=== PATIENT | male | born 1960 | race African-American/Black ===

== ENCOUNTER 2020-08-08 18:26 | Inpatient (IN) | payer OTHER ==
[2020-08-08] MEDS ORDERED: RAPID SEQUENCE INTUBATION KIT NR ONE (18:37)
[2020-08-08] MEDS ORDERED: ETOMIDATE 40 MG/20 ML VIAL IVPUSH ONE (18:48)
[2020-08-08] MEDS ORDERED: ROCURONIUM BROMIDE 50 MG/5 ML VIAL IV ONE ×2 (18:48)
[2020-08-08] MEDS ORDERED: ETOMIDATE 20 MG/10 ML AMPUL IVPUSH ONE (18:49)
[2020-08-08] MEDS ORDERED: SODIUM CHLORIDE 0.9% 1000 ML INFUS.BAG IV ONE (19:13)
[2020-08-08] MEDS ORDERED: VANCOMYCIN 1 GM in D5W (PRE-DOCKED) 1,000 MG/250 ML IVPB ONE (19:34)
[2020-08-08] MEDS ORDERED: PIPERACILLIN/TAZOB 4.5 GM 4.5 GM in DEXTROSE 5%-WATER 100 ML IVPB ONE (19:34)
[2020-08-08 19:40] LABS: BASO % 0.2 % (0-2.0); EOS % 0.3 % (0-4.5); HEMATOCRIT 45.6 % (35.4-49); HEMOGLOBIN 14.6 GM/dL (11.7-16.9); LYMPH % 61.3 % (8-40); MCH 29.2 pg (25.7-33.7); MCHC 32.1 g/dl (32.0-35.9); MEAN CELL VOLUME 91.1 fl (80-96); MEAN PLT VOLUME 9.6 fl (7.5-11.1); MONO % 6.3 % (3.8-10.2); NEUT % 31.9 % (42.8-82.8); PLATELET COUNT 316 K/MM3 (134-434); RDW 14.2 % (11.9-15.9)
[2020-08-08] MEDS ORDERED: PIPERACILLIN/TAZOB 4.5 GM 4.5 GM/100 ML BAG IVPB ONE (19:45)
[2020-08-08] MEDS ORDERED: VANCOMYCIN 1 GRAM (PRE-DOCKED) 1,000 MG/250 ML BAG IVPB ONE (19:45)
[2020-08-08 19:46] LABS: INR 1.03 (0.83-1.09); PROTHROMBIN TIME (PATIENT) 12.6 SEC (9.7-13.0)
[2020-08-08 19:49] LABS: ACTIVATED PTT 35.6 SECONDS (25.2-36.5)
[2020-08-08 19:55] LABS: VENOUS O2 SATURATION 76.5 % (70-80)
[2020-08-08 19:58] LABS: CALCIUM 8.9 mg/dL (8.5-10.1)
[2020-08-08 19:59] LABS: ALBUMIN 3.5 g/dl (3.4-5.0); BLOOD UREA NITROGEN 26.1 mg/dL (7-18); MAGNESIUM 2.4 mg/dL (1.8-2.4)
[2020-08-08 20:00] LABS: VENOUS PH 6.818 (7.310-7.410)
[2020-08-08 20:01] LABS: VENOUS PCO2 145.9 mmHg (38-52)
[2020-08-08 20:02] LABS: CREATININE 1.8 mg/dL (0.55-1.3)
[2020-08-08 20:04] LABS: BILIRUBIN,TOTAL 0.4 mg/dL (0.2-1); TOT PROT 7.9 g/dl (6.4-8.2)
[2020-08-08 20:07] LABS: N-TERMINAL BNP 611.6 pg/ml (5-125)
[2020-08-08] MEDS ORDERED: ONDANSETRON 4 MG/2 ML VIAL IVPUSH ONE (20:22)
[2020-08-08] MEDS ORDERED: FAMOTIDINE 20 MG/50 ML IVPB 20 MG/50 ML MG IVPB ONE ×2 (20:22→20:42)
[2020-08-08] MEDS ORDERED: ONDANSETRON 4 MG/2 ML VIAL ONE (20:25)
[2020-08-08 20:30] LABS: ARTERIAL BLD GAS O2 SATURATION 94.4 mmHg (95-98); ARTERIAL BLOOD GAS BASE EXCESS -8.6 mmol/L (-2-2); ARTERIAL BLOOD GAS PO2 97.6 mmHg (80-100)
[2020-08-08 20:36] LABS: ARTERIAL BLOOD GAS pH 7.095 (7.350-7.450)
[2020-08-08] MEDS ORDERED: PROPOFOL 1,000,000 MCG/100 ML VIAL ONE (20:42)
[2020-08-08] MEDS: PROPOFOL 1,000,000 MCG/100 ML VIAL IVPB SCH (20:52)
[2020-08-08 20:55] LABS: ANISOCYTOSIS 0; MACROCYTOSIS 0; PLATELET ESTIMATE NORMAL
[2020-08-08] MEDS ORDERED: MIDAZOLAM HCL 2 MG/2 ML SINGLE DOSE VIAL ONE (23:20)
[2020-08-08] MEDS ORDERED: MIDAZOLAM HCL 2 MG/2 ML SINGLE DOSE VIAL IVPUSH ONE (23:25)
[2020-08-09] MEDS ORDERED: morphine CARPU-JECT 2 MG/1 ML DISP.SYRIN IVPUSH ONE (00:38)
[2020-08-09] MEDS: CHLORHEXIDINE GLUCONATE 4% CLEANSER FOR DECOLONIZATION TP SCH ×2 (00:42→21:07)
[2020-08-09] MEDS: APIXABAN 5 MG TABLET PEG SCH ×3 (01:34→21:07)
[2020-08-09] MEDS: levETIRAcetam 500 MG/5 ML INJECTION VIAL IVPB SCH ×3 (01:34→21:07)
[2020-08-09 08:47] LABS: BASO % 0.1 % (0-2.0); EOS % 0.1 % (0-4.5); HEMATOCRIT 37.1 % (35.4-49); HEMOGLOBIN 12.4 GM/dL (11.7-16.9); LYMPH % 16.3 % (8-40); MCH 29.3 pg (25.7-33.7); MCHC 33.3 g/dl (32.0-35.9); MEAN CELL VOLUME 88.1 fl (80-96); MEAN PLT VOLUME 8.8 fl (7.5-11.1); MONO % 10.8 % (3.8-10.2); NEUT % 72.7 % (42.8-82.8); PLATELET COUNT 193 K/MM3 (134-434); RBC 4.21 M/mm3 (4.00-5.60); RDW 14.3 % (11.9-15.9); WHITE BLOOD COUNT 7.9 K/mm3 (4.0-10.0)
[2020-08-09 08:59] LABS: ALBUMIN 2.7 g/dl (3.4-5.0); CALCIUM 7.7 mg/dL (8.5-10.1)
[2020-08-09 09:00] LABS: BLOOD UREA NITROGEN 22.7 mg/dL (7-18); MAGNESIUM 1.8 mg/dL (1.8-2.4)
[2020-08-09 09:02] LABS: PHOSPHOROUS 3.3 mg/dL (2.5-4.9)
[2020-08-09 09:03] LABS: CREATININE 1.3 mg/dL (0.55-1.3)
[2020-08-09 09:04] LABS: BILIRUBIN,TOTAL 0.7 mg/dL (0.2-1)
[2020-08-09] MEDS: MUPIROCIN 2% TOPICAL OINTMENT FOR DECOLONIZATION NS SCH ×2 (11:28→21:06)
[2020-08-09] MEDS ORDERED: DEXTROSE 50%-WATER 25 GM/50 ML DISP.SYRIN ONE (18:02)
[2020-08-09] MEDS: PROPOFOL 1,000,000 MCG/100 ML VIAL IVPB SCH (21:06)
[2020-08-09] MEDS: INSULIN (LEVEMIR) 100 UNITS/ML UNITS SQ SCH (21:07)
[2020-08-10 06:06] LABS: ARTERIAL BLD GAS O2 SATURATION 99.8 mmHg (95-98); ARTERIAL BLOOD GAS BASE EXCESS -1.7 mmol/L (-2-2); ARTERIAL BLOOD GAS PO2 392.7 mmHg (80-100); ARTERIAL BLOOD GAS pH 7.445 (7.350-7.450)
[2020-08-10 06:07] LABS: ALLENS TEST POSITIVE; VENT MODE A/C; VENT RATE 20
[2020-08-10] MEDS ORDERED: DEXTROSE 50%-WATER 25 GM/50 ML DISP.SYRIN ONE ×2 (06:26→19:31)
[2020-08-10] MEDS ORDERED: DEXTROSE 50%-WATER - 25 GM/50 ML VIAL IVPUSH ONE (06:44)
[2020-08-10] MEDS: APIXABAN 5 MG TABLET PEG SCH (09:56)
[2020-08-10] MEDS: MUPIROCIN 2% TOPICAL OINTMENT FOR DECOLONIZATION NS SCH ×2 (09:56→21:00)
[2020-08-10] MEDS: levETIRAcetam 500 MG/5 ML INJECTION VIAL IVPB SCH ×2 (09:56→21:00)
[2020-08-10] MEDS: PROPOFOL 1,000,000 MCG/100 ML VIAL IVPB SCH ×2 (14:43→20:56)
[2020-08-10] MEDS ORDERED: LABETALOL HCL 5 MG/1 ML (100MG/20 ML VIAL) IVPUSH ONE (20:47)
[2020-08-10] MEDS: CHLORHEXIDINE GLUCONATE 4% CLEANSER FOR DECOLONIZATION TP SCH (21:00)
[2020-08-10] MEDS: INSULIN (LEVEMIR) 100 UNITS/ML UNITS SQ SCH (21:00)
[2020-08-10] MEDS ORDERED: HYDROmorphone HCl 2 MG/ML VIAL IVPUSH PRN (21:58)
[2020-08-10] MEDS ORDERED: HYDROmorphone HCl 2 MG/ML VIAL ONE (22:02)
[2020-08-11] MEDS ORDERED: DEXTROSE 5%-NORMAL SALINE 1,000 ML IV SCH ×2 (06:30→17:05)
[2020-08-11] MEDS: MUPIROCIN 2% TOPICAL OINTMENT FOR DECOLONIZATION NS SCH ×2 (10:45→22:06)
[2020-08-11] MEDS: levETIRAcetam 500 MG/5 ML INJECTION VIAL IVPB SCH ×2 (10:45→22:05)
[2020-08-11] MEDS ORDERED: ROCURONIUM BROMIDE 50 MG/5 ML VIAL IVPUSH ONE (11:19)
[2020-08-11] MEDS ORDERED: ACETAMINOPHEN 1000 MG/100 ML BAG IVPB ONE (12:09)
[2020-08-11] MEDS: PROPOFOL 1,000,000 MCG/100 ML VIAL IVPB SCH ×3 (12:44→21:41)
[2020-08-11] MEDS ORDERED: ACETAMINOPHEN INJECTION 100 ML IVPB ONE (13:12)
[2020-08-11 15:28] LABS: BASO % 0.2 % (0-2.0); HEMATOCRIT 40.6 % (35.4-49); HEMOGLOBIN 13.4 GM/dL (11.7-16.9); LYMPH % 8.3 % (8-40); MCHC 33.1 g/dl (32.0-35.9); MEAN CELL VOLUME 87.7 fl (80-96); MEAN PLT VOLUME 9.5 fl (7.5-11.1); MONO % 7.5 % (3.8-10.2); PLATELET COUNT 193 K/MM3 (134-434); RBC 4.63 M/mm3 (4.00-5.60); RDW 14.2 % (11.9-15.9); WHITE BLOOD COUNT 8.3 K/mm3 (4.0-10.0)
[2020-08-11 15:49] LABS: CALCIUM 8.2 mg/dL (8.5-10.1)
[2020-08-11 15:50] LABS: ALBUMIN 2.7 g/dl (3.4-5.0); BLOOD UREA NITROGEN 14.5 mg/dL (7-18); MAGNESIUM 1.9 mg/dL (1.8-2.4)
[2020-08-11 15:53] LABS: CREATININE 1.3 mg/dL (0.55-1.3)
[2020-08-11 15:54] LABS: BILIRUBIN,TOTAL 1.1 mg/dL (0.2-1)
[2020-08-11 15:55] LABS: TOT PROT 6.4 g/dl (6.4-8.2)
[2020-08-11 16:50] LABS: EPI CELLS >36 /uL (0-25.1); HYALINE CASTS 50 /uL (0-3.1); URINE APPEARANCE Error; URINE BACTERIA 329 /uL (0-1359); URINE BILIRUBIN NEGATIVE (NEGATIVE); URINE COLOR DK YELLOW; URINE GLUCOSE (UA) NEGATIVE (NEGATIVE); URINE KETONE TRACE (NEGATIVE); URINE LEUK ESTERASE 1+ (NEGATIVE); URINE NITRITE NEGATIVE (NEGATIVE); URINE PROTEIN 2+ (NEGATIVE); URINE RBC 614 /uL (0-23.9); URINE WBC 57 /uL (0-25.8)
[2020-08-11] MEDS ORDERED: DEXTROSE 5%-WATER - 50 ML IVPB ONE (17:29)
[2020-08-11] MEDS ORDERED: PIPERACILLIN/TAZOBACTAM 3.375 GM VIAL IVPB ONE (17:29)
[2020-08-11] MEDS: PIPERACILLIN/TAZOB 3.375 GM 3.375 GM in DEXTROSE 5%-WATER - 50 ML IVPB SCH (17:32)
[2020-08-11] MEDS ORDERED: ACETAMINOPHEN 1000 MG/100 ML BAG IVPB PRN (20:39)
[2020-08-11] MEDS: CHLORHEXIDINE GLUCONATE 4% CLEANSER FOR DECOLONIZATION TP SCH (22:06)
[2020-08-11] MEDS: INSULIN (LEVEMIR) 100 UNITS/ML UNITS SQ SCH (22:21)
[2020-08-11 22:43] LABS: BASO % 0.3 % (0-2.0); HEMATOCRIT 40.6 % (35.4-49); HEMOGLOBIN 13.7 GM/dL (11.7-16.9); LYMPH % 9.2 % (8-40); MCH 29.3 pg (25.7-33.7); MCHC 33.6 g/dl (32.0-35.9); MEAN PLT VOLUME 9.2 fl (7.5-11.1); MONO % 5.7 % (3.8-10.2); NEUT % 84.8 % (42.8-82.8); PLATELET COUNT 207 K/MM3 (134-434); RBC 4.66 M/mm3 (4.00-5.60); RDW 14.1 % (11.9-15.9)
[2020-08-11 23:03] LABS: CALCIUM 8.3 mg/dL (8.5-10.1)
[2020-08-11 23:04] LABS: ALBUMIN 2.6 g/dl (3.4-5.0); BLOOD UREA NITROGEN 15.3 mg/dL (7-18)
[2020-08-11 23:07] LABS: CREATININE 1.6 mg/dL (0.55-1.3)
[2020-08-11 23:08] LABS: BILIRUBIN,TOTAL 1.5 mg/dL (0.2-1); TOT PROT 6.5 g/dl (6.4-8.2)
[2020-08-12] MEDS ORDERED: PIPERACILLIN/TAZOBACTAM 3.375 GM VIAL IVPB ONE ×3 (00:53→19:33)
[2020-08-12] MEDS ORDERED: DEXTROSE 5%-WATER - 50 ML IVPB ONE ×3 (00:54→19:33)
[2020-08-12] MEDS: PIPERACILLIN/TAZOB 3.375 GM 3.375 GM in DEXTROSE 5%-WATER - 50 ML IVPB SCH ×3 (01:20→19:34)
[2020-08-12] MEDS: PROPOFOL 1,000,000 MCG/100 ML VIAL IVPB SCH ×3 (09:15→21:31)
[2020-08-12] MEDS: levETIRAcetam 500 MG/5 ML INJECTION VIAL IVPB SCH ×2 (09:24→21:30)
[2020-08-12] MEDS: MUPIROCIN 2% TOPICAL OINTMENT FOR DECOLONIZATION NS SCH ×2 (10:00→21:30)
[2020-08-12] MEDS: DEXTROSE 5%-0.45% SALINE 1,000 ML IV SCH (14:11)
[2020-08-12] MEDS: CHLORHEXIDINE GLUCONATE 4% CLEANSER FOR DECOLONIZATION TP SCH (21:30)
[2020-08-12] MEDS: INSULIN (LEVEMIR) 100 UNITS/ML UNITS SQ SCH (21:31)
[2020-08-13] MEDS ORDERED: DEXTROSE 5%-WATER - 50 ML IVPB ONE ×2 (02:15→09:39)
[2020-08-13] MEDS ORDERED: PIPERACILLIN/TAZOBACTAM 3.375 GM VIAL IVPB ONE ×2 (02:15→09:38)
[2020-08-13] MEDS: PIPERACILLIN/TAZOB 3.375 GM 3.375 GM in DEXTROSE 5%-WATER - 50 ML IVPB SCH ×2 (02:20→09:58)
[2020-08-13 06:41] LABS: BASO % 0.4 % (0-2.0); EOS % 0.6 % (0-4.5); HEMATOCRIT 32.8 % (35.4-49); HEMOGLOBIN 11.2 GM/dL (11.7-16.9); LYMPH % 15.1 % (8-40); MCH 29.4 pg (25.7-33.7); MEAN CELL VOLUME 86.4 fl (80-96); MEAN PLT VOLUME 8.9 fl (7.5-11.1); MONO % 7.4 % (3.8-10.2); NEUT % 76.5 % (42.8-82.8); PLATELET COUNT 193 K/MM3 (134-434); RBC 3.79 M/mm3 (4.00-5.60); RDW 13.9 % (11.9-15.9); WHITE BLOOD COUNT 5.6 K/mm3 (4.0-10.0)
[2020-08-13 07:05] LABS: ALBUMIN 2.1 g/dl (3.4-5.0); BLOOD UREA NITROGEN 10.9 mg/dL (7-18); CALCIUM 7.8 mg/dL (8.5-10.1)
[2020-08-13 07:08] LABS: CREATININE 1.2 mg/dL (0.55-1.3)
[2020-08-13 07:09] LABS: PHOSPHOROUS 2.6 mg/dL (2.5-4.9)
[2020-08-13 07:10] LABS: BILIRUBIN,TOTAL 1.4 mg/dL (0.2-1); TOT PROT 5.5 g/dl (6.4-8.2)
[2020-08-13] MEDS: KCL 10 MEQ IVPB 10 MEQ/100 ML INFUS.BAG IVPB SCH ×2 (09:57→11:31)
[2020-08-13] MEDS: MUPIROCIN 2% TOPICAL OINTMENT FOR DECOLONIZATION NS SCH ×2 (09:58→21:51)
[2020-08-13] MEDS: levETIRAcetam 500 MG/5 ML INJECTION VIAL IVPB SCH ×2 (09:58→21:51)
[2020-08-13] MEDS: DEXTROSE 5%-0.45% SALINE 1,000 ML IV SCH ×2 (15:45→18:15)
[2020-08-13] MEDS ORDERED: PIPERACILLIN/TAZOBACTAM 4.5 GM VIAL IVPB ONE (18:12)
[2020-08-13] MEDS ORDERED: DEXTROSE 5%-WATER 100 ML IVPB ONE (18:12)
[2020-08-13] MEDS: PIPERACILLIN/TAZOB 4.5 GM 4.5 GM in DEXTROSE 5%-WATER 100 ML IVPB SCH (18:15)
[2020-08-13] MEDS ORDERED: ACETAMINOPHEN 1000 MG/100 ML BAG IVPB ONE (20:47)
[2020-08-13] MEDS ORDERED: METOPROLOL TARTRATE 5 MG/5 ML VIAL IVPUSH ONE (20:47)
[2020-08-13] MEDS: PROPOFOL 1,000,000 MCG/100 ML VIAL IVPB SCH (20:49)
[2020-08-13] MEDS: CHLORHEXIDINE GLUCONATE 4% CLEANSER FOR DECOLONIZATION TP SCH (21:51)
[2020-08-13] MEDS ORDERED: amLODIPine BESYLATE 10 MG TABLET (FP) PEG ONE (23:09)
[2020-08-13] MEDS: INSULIN (LEVEMIR) 100 UNITS/ML UNITS SQ SCH (23:28)
[2020-08-14] MEDS ORDERED: PIPERACILLIN/TAZOBACTAM 4.5 GM VIAL IVPB ONE ×3 (00:15→18:05)
[2020-08-14] MEDS ORDERED: DEXTROSE 5%-WATER 100 ML IVPB ONE ×3 (00:16→18:05)
[2020-08-14] MEDS: PIPERACILLIN/TAZOB 4.5 GM 4.5 GM in DEXTROSE 5%-WATER 100 ML IVPB SCH ×3 (01:04→18:10)
[2020-08-14 07:02] LABS: BASO % 0.3 % (0-2.0); EOS % 0.8 % (0-4.5); HEMATOCRIT 34.9 % (35.4-49); HEMOGLOBIN 11.8 GM/dL (11.7-16.9); MCH 29.2 pg (25.7-33.7); MCHC 33.8 g/dl (32.0-35.9); MEAN CELL VOLUME 86.6 fl (80-96); MONO % 9.5 % (3.8-10.2); NEUT % 72.4 % (42.8-82.8); PLATELET COUNT 218 K/MM3 (134-434); RBC 4.03 M/mm3 (4.00-5.60); RDW 13.8 % (11.9-15.9); WHITE BLOOD COUNT 5.4 K/mm3 (4.0-10.0)
[2020-08-14 07:38] LABS: BILIRUBIN,TOTAL 1.2 mg/dL (0.2-1)
[2020-08-14 07:39] LABS: TOT PROT 5.9 g/dl (6.4-8.2)
[2020-08-14 07:40] LABS: CALCIUM 8.1 mg/dL (8.5-10.1)
[2020-08-14 07:43] LABS: PHOSPHOROUS 2.8 mg/dL (2.5-4.9)
[2020-08-14] MEDS ORDERED: hydrALAZINE HCL 20 MG/ML VIAL IVPUSH ONE (09:04)
[2020-08-14] MEDS: FENTANYL IVPB 500 MCG/100 ML BAG IVPB SCH (09:17)
[2020-08-14] MEDS: levETIRAcetam 500 MG/5 ML INJECTION VIAL IVPB SCH ×2 (09:18→21:32)
[2020-08-14] MEDS: PROPOFOL 1,000,000 MCG/100 ML VIAL IVPB SCH ×3 (09:30→19:00)
[2020-08-14] MEDS ORDERED: ROCURONIUM BROMIDE 50 MG/5 ML VIAL IV ONE (11:44)
[2020-08-14] MEDS: DEXTROSE 5%-0.45% SALINE 1,000 ML IV SCH ×2 (13:30→17:49)
[2020-08-14] MEDS ORDERED: ACETAMINOPHEN 1000 MG/100 ML BAG IVPB ONE (14:36)
[2020-08-14] MEDS: CHLORHEXIDINE GLUCONATE 4% CLEANSER FOR DECOLONIZATION TP SCH (21:33)
[2020-08-14] MEDS: INSULIN (LEVEMIR) 100 UNITS/ML UNITS SQ SCH (21:34)
[2020-08-15] MEDS ORDERED: PIPERACILLIN/TAZOBACTAM 4.5 GM VIAL IVPB ONE ×3 (01:08→14:34)
[2020-08-15] MEDS ORDERED: DEXTROSE 5%-WATER 100 ML IVPB ONE ×3 (01:08→14:34)
[2020-08-15] MEDS: PIPERACILLIN/TAZOB 4.5 GM 4.5 GM in DEXTROSE 5%-WATER 100 ML IVPB SCH ×3 (02:21→17:12)
[2020-08-15 08:09] LABS: BASO % 0.5 % (0-2.0); EOS % 0.8 % (0-4.5); HEMATOCRIT 32.8 % (35.4-49); HEMOGLOBIN 11.2 GM/dL (11.7-16.9); LYMPH % 26.1 % (8-40); MCH 29.3 pg (25.7-33.7); MCHC 34.2 g/dl (32.0-35.9); MEAN CELL VOLUME 85.7 fl (80-96); MEAN PLT VOLUME 8.6 fl (7.5-11.1); MONO % 14.7 % (3.8-10.2); NEUT % 57.9 % (42.8-82.8); PLATELET COUNT 218 K/MM3 (134-434); RBC 3.83 M/mm3 (4.00-5.60); RDW 13.6 % (11.9-15.9); WHITE BLOOD COUNT 4.3 K/mm3 (4.0-10.0)
[2020-08-15 08:30] LABS: ALBUMIN 1.8 g/dl (3.4-5.0); BLOOD UREA NITROGEN 8.4 mg/dL (7-18); MAGNESIUM 1.8 mg/dL (1.8-2.4)
[2020-08-15 08:33] LABS: BILIRUBIN,TOTAL 0.9 mg/dL (0.2-1); PHOSPHOROUS 2.8 mg/dL (2.5-4.9); TOT PROT 5.4 g/dl (6.4-8.2)
[2020-08-15] MEDS: FENTANYL IVPB 500 MCG/100 ML BAG IVPB SCH (09:39)
[2020-08-15] MEDS: levETIRAcetam 500 MG/5 ML INJECTION VIAL IVPB SCH ×2 (09:39→22:26)
[2020-08-15] MEDS: amLODIPine BESYLATE 10 MG TABLET (FP) PO SCH (14:43)
[2020-08-15] MEDS: LISINOPRIL 10 MG TABLET PO SCH (14:43)
[2020-08-15] MEDS: DEXTROSE 5%-0.45% SALINE 1,000 ML IV SCH (17:12)
[2020-08-15] MEDS ORDERED: ACETAMINOPHEN INJECTION 100 ML IVPB ONE (17:37)
[2020-08-15] MEDS ORDERED: ACETAMINOPHEN 1000 MG/100 ML BAG IVPB ONE (17:39)
[2020-08-15] MEDS: INSULIN (LEVEMIR) 100 UNITS/ML UNITS SQ SCH (22:31)
[2020-08-15] MEDS: CHLORHEXIDINE GLUCONATE 4% CLEANSER FOR DECOLONIZATION TP SCH (22:34)
[2020-08-15] MEDS: SENNOSIDES 8.6MG TABLET (FP) PO SCH (22:34)
[2020-08-16] MEDS ORDERED: PIPERACILLIN/TAZOBACTAM 4.5 GM VIAL IVPB ONE ×3 (02:08→17:31)
[2020-08-16] MEDS ORDERED: DEXTROSE 5%-WATER 100 ML IVPB ONE ×3 (02:08→17:31)
[2020-08-16] MEDS: PIPERACILLIN/TAZOB 4.5 GM 4.5 GM in DEXTROSE 5%-WATER 100 ML IVPB SCH ×3 (02:40→18:00)
[2020-08-16] MEDS: LISINOPRIL 10 MG TABLET PO SCH (10:50)
[2020-08-16] MEDS: amLODIPine BESYLATE 10 MG TABLET (FP) PO SCH (10:51)
[2020-08-16] MEDS: levETIRAcetam 500 MG/5 ML INJECTION VIAL IVPB SCH ×2 (10:51→21:05)
[2020-08-16 15:25] VITALS: BMI 22.0
[2020-08-16] MEDS: DEXTROSE 5%-0.45% SALINE 1,000 ML IV SCH (18:00)
[2020-08-16] MEDS ORDERED: ACETAMINOPHEN 1000 MG/100 ML BAG IVPB ONE (18:15)
[2020-08-16] MEDS ORDERED: PT OWN MED DRAWER 7, Y5N ONE (18:20)
[2020-08-16] MEDS: CHLORHEXIDINE GLUCONATE 4% CLEANSER FOR DECOLONIZATION TP SCH (21:05)
[2020-08-16] MEDS: SENNOSIDES 8.6MG TABLET (FP) PO SCH (21:06)
[2020-08-16] MEDS: INSULIN (LEVEMIR) 100 UNITS/ML UNITS SQ SCH (21:12)
[2020-08-17] MEDS: PIPERACILLIN/TAZOB 4.5 GM 4.5 GM in DEXTROSE 5%-WATER 100 ML IVPB SCH ×3 (02:10→18:03)
[2020-08-17] MEDS ORDERED: PIPERACILLIN/TAZOBACTAM 4.5 GM VIAL IVPB ONE ×3 (02:11→20:21)
[2020-08-17] MEDS ORDERED: DEXTROSE 5%-WATER 100 ML IVPB ONE ×3 (02:11→20:21)
[2020-08-17] MEDS: amLODIPine BESYLATE 10 MG TABLET (FP) PO SCH (10:19)
[2020-08-17] MEDS: LISINOPRIL 10 MG TABLET PO SCH (10:19)
[2020-08-17] MEDS: levETIRAcetam 500 MG/5 ML INJECTION VIAL IVPB SCH (10:19)
[2020-08-17] MEDS: DEXTROSE 5%-0.45% SALINE 1,000 ML IV SCH (17:52)
[2020-08-17] MEDS ORDERED: PT OWN MED DRAWER 7, Y5N ONE (22:15)
[2020-08-17] MEDS: INSULIN (LEVEMIR) 100 UNITS/ML UNITS SQ SCH (22:20)
[2020-08-17] MEDS: cloNIDine HCL 0.1 MG TABLET PEG SCH (22:20)
[2020-08-17] MEDS: CHLORHEXIDINE GLUCONATE 4% CLEANSER FOR DECOLONIZATION TP SCH (22:20)
[2020-08-17] MEDS: levETIRAcetam 500 MG/5 ML ORAL SOLUTION BULK GT SCH (22:20)
[2020-08-17] MEDS: SENNOSIDES 8.6MG TABLET (FP) PO SCH (22:21)
[2020-08-18] MEDS: PIPERACILLIN/TAZOB 4.5 GM 4.5 GM in DEXTROSE 5%-WATER 100 ML IVPB SCH ×3 (02:56→18:21)
[2020-08-18] MEDS ORDERED: PT OWN MED DRAWER 7, Y5N ONE ×4 (09:00→10:31)
[2020-08-18] MEDS ORDERED: DEXTROSE 5%-WATER 100 ML IVPB ONE ×2 (09:01→17:48)
[2020-08-18] MEDS ORDERED: PIPERACILLIN/TAZOBACTAM 4.5 GM VIAL IVPB ONE ×2 (09:01→17:47)
[2020-08-18] MEDS: LISINOPRIL 10 MG TABLET PO SCH (09:08)
[2020-08-18] MEDS: amLODIPine BESYLATE 10 MG TABLET (FP) PO SCH (09:08)
[2020-08-18] MEDS: cloNIDine HCL 0.1 MG TABLET PEG SCH (09:09)
[2020-08-18] MEDS: levETIRAcetam 500 MG/5 ML ORAL SOLUTION BULK GT SCH (11:22)
[2020-08-18] MEDS: DEXTROSE 5%-0.45% SALINE 1,000 ML IV SCH (16:40)
[2020-08-18 17:58] VITALS: BP 122/65
[2020-08-18 18:22] VITALS: PULSE 78; TEMP 97.7
== END 2020-08-18 19:10 | DRG 5 ==
LOC: JER 18:26 → JERBED 19:25 → JICU 08-09 00:49
PROVIDERS: ADMIT Internal Medicine Pulmonary Disease; ATTEND Internal Medicine
PROC: 5A1955Z Respiratory Ventilation, Greater than 96 Consecutive Hours (ICD-10-PCS; 2020-08-08)
PROC: 0BH18EZ Insertion of Endotracheal Airway into Trachea, Via Natural or Artificial Opening Endoscopic (ICD-10-PCS; 2020-08-08)
PROC: 3E0G76Z Introduction of Nutritional Substance into Upper GI, Via Natural or Artificial Opening (ICD-10-PCS; 2020-08-13)
PROC: 0B113F4 Bypass Trachea to Cutaneous with Tracheostomy Device, Percutaneous Approach (ICD-10-PCS; principal; 2020-08-14)
PROC: 0BJ08ZZ Inspection of Tracheobronchial Tree, Via Natural or Artificial Opening Endoscopic (ICD-10-PCS; 2020-08-14)
DX: J95.09 Other tracheostomy complication (principal); J69.0 Pneumonitis due to inhalation of food and vomit; E87.2 Acidosis; Z93.1 Gastrostomy status; R64 Cachexia; J44.9 Chronic obstructive pulmonary disease, unspecified; J96.22 Acute and chronic respiratory failure with hypercapnia; G40.909 Epilepsy, unspecified, not intractable, without status epilepticus; Z86.718 Personal history of other venous thrombosis and embolism; I10 Essential (primary) hypertension; Y83.8 Other surgical procedures as the cause of abnormal reaction of the patient, or of later complication, without mention of misadventure at the time of the procedure; E11.9 Type 2 diabetes mellitus without complications; Z98.2 Presence of cerebrospinal fluid drainage device
CPT/HCPCS: 36415; 36600; 70450-TC; 71045-TC-FY; 80053; 81003; 82550; 82803; 82962; 83605; 83735; 83880; 84100; 84484; 85025; 85610; 85730; 86850; 86900; 86901; 87040; 87070; 87086; 87186; 87205; 87899; 93005; 93010; 94002; 99291; C9803; J0131; J0735; U0003

== ENCOUNTER 2021-11-13 09:44 | Day surgery (SDC) | payer OTHER ==
[2021-11-12 13:13] VITALS: BMI 24.3
[2021-11-13 10:23] VITALS: TEMP 97.7
[2021-11-13 11:49] VITALS: BP 131/83; PULSE 69
== END 2021-11-13 12:03 | disposition home or self-care (01) ==
LOC: MERGE 09:44 → FASU-ENDO 09:44
PROVIDERS: ATTEND Internal Medicine Gastroenterology
PROC: 0DB98ZX Excision of Duodenum, Via Natural or Artificial Opening Endoscopic, Diagnostic (ICD-10-PCS; 2021-11-13)
PROC: 0DB68ZX Excision of Stomach, Via Natural or Artificial Opening Endoscopic, Diagnostic (ICD-10-PCS; 2021-11-13)
PROC: 0DP64UZ Removal of Feeding Device from Stomach, Percutaneous Endoscopic Approach (ICD-10-PCS; principal; 2021-11-13 10:57)
DX: Z43.1 Encounter for attention to gastrostomy (principal); K29.50 Unspecified chronic gastritis without bleeding; K29.80 Duodenitis without bleeding; R10.13 Epigastric pain
CPT/HCPCS: 82962; 88305-TC

== ENCOUNTER 2021-12-22 09:30 | Day surgery (SDC) | payer OTHER ==
[2021-12-16 15:55] VITALS: BMI 24.3
[2021-12-22 12:51] VITALS: TEMP 97.6
[2021-12-22 13:01] VITALS: PULSE 62
[2021-12-22 13:20] VITALS: BP 122/68
== END 2021-12-22 13:20 | disposition home or self-care (01) ==
LOC: FASU-ENDO 09:30
PROVIDERS: ATTEND Internal Medicine Gastroenterology
PROC: 0DJD8ZZ Inspection of Lower Intestinal Tract, Via Natural or Artificial Opening Endoscopic (ICD-10-PCS; principal; 2021-12-22 11:52)
DX: Z12.11 Encounter for screening for malignant neoplasm of colon (principal); K57.30 Diverticulosis of large intestine without perforation or abscess without bleeding; K64.1 Second degree hemorrhoids
CPT/HCPCS: 82962

== ENCOUNTER 2024-03-01 15:46 | Observation (INO) | payer OTHER ==
[2024-03-01 16:35] VITALS: BMI 22.0
[2024-03-01] MEDS: ACETAMINOPHEN 325 MG TABLET (FP) PO ONE (16:45)
[2024-03-01] MEDS ORDERED: ACETAMINOPHEN 325 MG TABLET (FP) ONE (18:11)
[2024-03-01 20:03] LABS: BASO % 0.7 % (0-2.0); EOS % 0.2 % (0-4.5); HEMATOCRIT 43.4 % (35.4-49); HEMOGLOBIN 14.6 GM/dL (11.7-16.9); MCH 27.8 pg (25.7-33.7); MCHC 33.6 g/dl (32.0-35.9); MEAN CELL VOLUME 82.8 fl (80-96); MEAN PLT VOLUME 8.3 fl (7.5-11.1); MONO % 10.2 % (3.8-10.2); NEUT % 61.9 % (42.8-82.8); PLATELET COUNT 427 10^3/uL (134-434); RBC 5.25 M/mm3 (4.00-5.60); RDW 14.8 % (11.9-15.9); WHITE BLOOD COUNT 7.1 K/mm3 (4.0-10.0)
[2024-03-01 20:11] LABS: POTASSIUM 3.7 mmol/L (3.5-5.1)
[2024-03-01 20:12] LABS: CALCIUM 9.2 mg/dL (8.5-10.1)
[2024-03-01 20:13] LABS: ALBUMIN 3.4 g/dl (3.4-5.0); BLOOD UREA NITROGEN 17.3 mg/dL (7-18); MAGNESIUM 2.1 mg/dL (1.8-2.4)
[2024-03-01 20:16] LABS: CREATININE 1.5 mg/dL (0.55-1.3); PHOSPHOROUS 2.9 mg/dL (2.5-4.9)
[2024-03-01 20:17] LABS: BILIRUBIN,TOTAL 0.9 mg/dL (0.2-1)
[2024-03-01 20:18] LABS: ACTIVATED PTT 34.5 SECONDS (25.2-36.5); INR 1.03 (0.83-1.09); PROTHROMBIN TIME (PATIENT) 11.8 SEC (9.7-13.0)
[2024-03-01] MEDS ORDERED: ASPIRIN 81 MG CHEWABLE TABLETS ONE (21:20)
[2024-03-01] MEDS: LACTATED RINGERS SOLUTION 1000 ML INFUS.BAG IV ONE (21:27)
[2024-03-01] MEDS: ASPIRIN 81 MG CHEWABLE TABLETS PO ONE (21:27)
[2024-03-02] MEDS ORDERED: ALBUTEROL SO4 HFA INHALER IH PRN (05:24)
[2024-03-02] MEDS ORDERED: POLYETHYLENE GLYCOL (HEALTHYLAX) 3350 17 GM PACKET PO PRN (06:34)
[2024-03-02] MEDS: ARTIFICIAL TEARS OPHTHALMIC DROPS OU SCH (09:37)
[2024-03-02] MEDS: SENNOSIDES 8.6MG TABLET (FP) PO SCH (09:37)
[2024-03-02] MEDS: amLODIPine BESYLATE 10 MG TABLET (FP) PO SCH (11:36)
[2024-03-02] MEDS: ASPIRIN COATED 81 MG TABLET.EC PO SCH (11:36)
[2024-03-02] MEDS: ALBUTEROL SO4 HFA INHALER IH SCH (11:36)
[2024-03-02 13:28] VITALS: RESP 18
[2024-03-02] MEDS: ATORVASTATIN CA 40 MG TABLET (FP) PO SCH (21:21)
[2024-03-02 22:50] LABS: EPI CELLS 2 /uL (0-25.1); HYALINE CASTS 0 /uL (0-3.1); PH,URINE 5.5 (5.0-8.0); URINE APPEARANCE CLEAR; URINE BACTERIA 91 /uL (0-1359); URINE BILIRUBIN NEGATIVE (NEGATIVE); URINE COLOR YELLOW; URINE GLUCOSE (UA) NEGATIVE (NEGATIVE); URINE KETONE TRACE (NEGATIVE); URINE LEUK ESTERASE NEGATIVE (NEGATIVE); URINE NITRITE NEGATIVE (NEGATIVE); URINE PROTEIN NEGATIVE (NEGATIVE); URINE RBC 31 /uL (0-23.9); URINE UROBILINOGEN 0.2 mg/dL (0.2-1.0); URINE WBC 4 /uL (0-25.8)
[2024-03-03 09:02] LABS: POTASSIUM 3.8 mmol/L (3.5-5.1)
[2024-03-03 09:06] LABS: CHOLESTEROL 194 mg/dL (50-200)
[2024-03-03 09:07] LABS: LDL CHOLESTEROL (ONLY SJRH) 129 mg/dL (5-100)
[2024-03-03 09:08] LABS: CALCIUM 8.6 mg/dL (8.5-10.1)
[2024-03-03 09:09] LABS: HDL CHOLESTEROL 47 mg/dL (40-60)
[2024-03-03 09:10] LABS: ALBUMIN 2.8 g/dl (3.4-5.0); BLOOD UREA NITROGEN 22.4 mg/dL (7-18); CREATININE 1.6 mg/dL (0.55-1.3)
[2024-03-03 09:11] LABS: BILIRUBIN,TOTAL 0.9 mg/dL (0.2-1); TOT PROT 6.9 g/dl (6.4-8.2)
[2024-03-03] MEDS: ACETAMINOPHEN 325 MG TABLET (FP) PO PRN (09:31)
[2024-03-03 11:41] VITALS: BP 129/71; PULSE 63; TEMP 98.1
== END 2024-03-03 11:51 | disposition short-term general hospital (02) ==
LOC: JER 15:46 → JERBED 03-02 00:44 → J4S 03-02 03:13
PROVIDERS: ADMIT Internal Medicine; ATTEND Internal Medicine
PROC: 3E0337Z Introduction of Electrolytic and Water Balance Substance into Peripheral Vein, Percutaneous Approach (ICD-10-PCS; principal; 2024-03-02)
DX: R41.82 Altered mental status, unspecified (principal); N17.9 Acute kidney failure, unspecified; J44.9 Chronic obstructive pulmonary disease, unspecified; I10 Essential (primary) hypertension; M19.90 Unspecified osteoarthritis, unspecified site; W18.39XA Other fall on same level, initial encounter; Y93.89 Activity, other specified; G93.41 Metabolic encephalopathy; Y92.098 Other place in other non-institutional residence as the place of occurrence of the external cause; E11.9 Type 2 diabetes mellitus without complications; F32.9 Major depressive disorder, single episode, unspecified; G20.A1 Parkinson's disease without dyskinesia, without mention of fluctuations; I69.851 Hemiplegia and hemiparesis following other cerebrovascular disease affecting right dominant side; Z79.4 Long term (current) use of insulin; R77.8 Other specified abnormalities of plasma proteins
CPT/HCPCS: 0241U-QW; 36415; 70450-TC; 71045-TC-FY; 72125-TC; 73110-TC-LT-FY; 73130-TC-LT-FY; 80053; 80061; 81003; 82962; 83036; 83735; 84100; 84484; 85025; 85610; 85730; 87086; 87186; 93005; 93010; 93306-TC; 97116-GP; 97161-GP; 99285-25; G0378

== ENCOUNTER 2024-04-05 02:52 | Inpatient (IN) | payer OTHER ==
[2024-04-05 04:07] LABS: BASO % 0.5 % (0-2.0); EOS % 0.3 % (0-4.5); HEMOGLOBIN 14.2 GM/dL (11.7-16.9); LYMPH % 15.3 % (8-40); MCH 27.2 pg (25.7-33.7); MEAN CELL VOLUME 82.3 fl (80-96); MEAN PLT VOLUME 7.5 fl (7.5-11.1); MONO % 8.7 % (3.8-10.2); NEUT % 75.2 % (42.8-82.8); PLATELET COUNT 636 10^3/uL (134-434); RBC 5.22 M/mm3 (4.00-5.60); RDW 14.6 % (11.9-15.9); WHITE BLOOD COUNT 7.1 K/mm3 (4.0-10.0)
[2024-04-05 04:24] LABS: CHLORIDE 118 mmol/L (98-107); SODIUM 147 mmol/L (136-145)
[2024-04-05 04:26] LABS: CALCIUM 9.4 mg/dL (8.5-10.1)
[2024-04-05 04:27] LABS: ALBUMIN 2.4 g/dl (3.4-5.0); BLOOD UREA NITROGEN 26.2 mg/dL (7-18); CO2 25 mmol/L (21-32); GLUCOSE,RANDOM 91 mg/dL (74-106)
[2024-04-05 04:30] LABS: CREATININE 1.7 mg/dL (0.55-1.3); SGOT/AST 15 U/L (15-37); SGPT/ALT 12 U/L (13-61)
[2024-04-05 04:31] LABS: BILIRUBIN,TOTAL 0.6 mg/dL (0.2-1); TOT PROT 8.1 g/dl (6.4-8.2)
[2024-04-05 04:33] LABS: ALK PHOS 89 U/L (45-117)
[2024-04-05 05:04] LABS: ANION GAP 4 mmol/L (4-13); POTASSIUM 6.1 mmol/L (3.5-5.1)
[2024-04-05] MEDS ORDERED: FUROSEMIDE 40 MG/4 ML INJECTABLE VIAL ONE (05:12)
[2024-04-05] MEDS ORDERED: DEXTROSE 50%-WATER 25 GM/50 ML DISP.SYRIN ONE ×2 (05:12→05:14)
[2024-04-05] MEDS ORDERED: SODIUM ZIRCONIUM CYCLOSILICATE (LOKELMA) 10 GM PACKET ONE (05:12)
[2024-04-05] MEDS ORDERED: INSULIN REGULAR HUMAN 100 UNITS/ML *VIAL ONE ×2 (05:13→06:07)
[2024-04-05] MEDS: SODIUM ZIRCONIUM CYCLOSILICATE (LOKELMA) 5 GM PACKET PO ONE (05:35)
[2024-04-05] MEDS: FUROSEMIDE 40 MG/4 ML INJECTABLE VIAL IVPUSH ONE (05:35)
[2024-04-05] MEDS: INSULIN REGULAR HUMAN 100 UNITS/ML *VIAL IVPUSH ONE ×2 (05:35→06:19)
[2024-04-05] MEDS: DEXTROSE 50%-WATER - 25 GM/50 ML VIAL IVPUSH ONE ×2 (05:38)
[2024-04-05] MEDS: DEXTROSE 5%-WATER - 1,000 ML IV SCH ×2 (06:19→14:07)
[2024-04-05 08:13] LABS: BASO % 0.6 % (0-2.0); EOS % 0.1 % (0-4.5); HEMATOCRIT 42.5 % (35.4-49); LYMPH % 14.9 % (8-40); MCH 27.4 pg (25.7-33.7); MCHC 32.8 g/dl (32.0-35.9); MEAN CELL VOLUME 83.5 fl (80-96); MEAN PLT VOLUME 8.1 fl (7.5-11.1); MONO % 13.1 % (3.8-10.2); NEUT % 71.3 % (42.8-82.8); PLATELET COUNT 659 10^3/uL (134-434); RBC 5.09 M/mm3 (4.00-5.60); RDW 14.3 % (11.9-15.9); WHITE BLOOD COUNT 9.8 K/mm3 (4.0-10.0)
[2024-04-05 08:36] LABS: POTASSIUM 4.8 mmol/L (3.5-5.1)
[2024-04-05 08:37] LABS: CALCIUM 8.8 mg/dL (8.5-10.1)
[2024-04-05 08:38] LABS: BLOOD UREA NITROGEN 23.7 mg/dL (7-18)
[2024-04-05 08:41] LABS: CREATININE 1.6 mg/dL (0.55-1.3)
[2024-04-05 09:04] LABS: POTASSIUM 5.2 mmol/L (3.5-5.1)
[2024-04-05] MEDS ORDERED: amLODIPine BESYLATE 10 MG TABLET (FP) ONE (09:05)
[2024-04-05 09:06] LABS: BLOOD UREA NITROGEN 25.1 mg/dL (7-18); CALCIUM 9.1 mg/dL (8.5-10.1)
[2024-04-05] MEDS ORDERED: HEPARIN NA (PORCINE) 5,000 UNITS/ML 1ML VIAL ONE (09:06)
[2024-04-05] MEDS ORDERED: ASPIRIN 81 MG CHEWABLE TABLETS ONE (09:06)
[2024-04-05 09:10] LABS: CREATININE 1.5 mg/dL (0.55-1.3)
[2024-04-05] MEDS: ASPIRIN 81 MG CHEWABLE TABLETS PO SCH (09:16)
[2024-04-05] MEDS: HEPARIN NA (PORCINE) 5,000 UNITS/ML 1ML VIAL SQ SCH (09:16)
[2024-04-05] MEDS: amLODIPine BESYLATE 10 MG TABLET (FP) PO SCH (09:16)
[2024-04-05] MEDS ORDERED: ENOXAPARIN NA (PORCINE) 40 MG/0.4 ML DISP.SYRIN SQ SCH (10:00)
[2024-04-05] MEDS: SODIUM CHLORIDE 0.9% 500 ML INFUS.BAG IV ONE (11:01)
[2024-04-05] MEDS: ARTIFICIAL TEARS OPHTHALMIC DROPS OU SCH (11:04)
[2024-04-05] MEDS ORDERED: amLODIPine BESYLATE 10 MG TABLET (FP) PO SCH (16:33)
[2024-04-05] MEDS: ATORVASTATIN CA 80 MG TABLET (FP) PO SCH (21:47)
[2024-04-05] MEDS: SENNOSIDES 8.6MG TABLET (FP) PO SCH (21:47)
[2024-04-05] MEDS: INSULIN ASPART SLIDING SCALE (NOVOLOG) 1 VIAL SQ SCH (21:54)
[2024-04-05] MEDS: LATANOPROST 0.005% OPHTH SOLN 2.5ML BOTTLE OU SCH (23:16)
[2024-04-06] MEDS ORDERED: DEXTROSE 5%-NORMAL SALINE 1,000 ML IV SCH (10:45)
[2024-04-06] MEDS: SODIUM CHLORIDE 1,000 ML IV SCH (11:33)
[2024-04-06 11:37] LABS: HEMATOCRIT 45.6 % (35.4-49); HEMOGLOBIN 14.9 GM/dL (11.7-16.9); MCH 27.1 pg (25.7-33.7); MCHC 32.8 g/dl (32.0-35.9); MEAN CELL VOLUME 82.7 fl (80-96); RBC 5.51 M/mm3 (4.00-5.60); RDW 14.4 % (11.9-15.9)
[2024-04-06 11:39] LABS: POTASSIUM 5.5 mmol/L (3.5-5.1)
[2024-04-06 11:40] LABS: WHITE BLOOD COUNT 7.7 K/mm3 (4.0-10.0)
[2024-04-06 11:42] LABS: ALBUMIN 2.4 g/dl (3.4-5.0); BLOOD UREA NITROGEN 16.5 mg/dL (7-18); MAGNESIUM 2.1 mg/dL (1.8-2.4)
[2024-04-06 11:45] LABS: CREATININE 1.5 mg/dL (0.55-1.3)
[2024-04-06 11:46] LABS: BILIRUBIN,TOTAL 1.2 mg/dL (0.2-1); TOT PROT 8.1 g/dl (6.4-8.2)
[2024-04-06 11:57] LABS: ANISOCYTOSIS 0; MACROCYTOSIS 0
[2024-04-06 11:59] LABS: PLATELET ESTIMATE ADEQUATE
[2024-04-06] MEDS: SODIUM ZIRCONIUM CYCLOSILICATE (LOKELMA) 5 GM PACKET PO SCH (14:28)
[2024-04-06 23:54] VITALS: BMI 22.8
[2024-04-07 08:54] LABS: HEMATOCRIT 39.5 % (35.4-49); MCH 27.1 pg (25.7-33.7); MEAN CELL VOLUME 82.3 fl (80-96); MEAN PLT VOLUME 8.1 fl (7.5-11.1); PLATELET COUNT 500 10^3/uL (134-434); RDW 14.1 % (11.9-15.9); WHITE BLOOD COUNT 4.9 K/mm3 (4.0-10.0)
[2024-04-07 09:02] LABS: POTASSIUM 4.6 mmol/L (3.5-5.1)
[2024-04-07 09:13] LABS: BLOOD UREA NITROGEN 12.1 mg/dL (7-18)
[2024-04-07 09:17] LABS: CREATININE 1.4 mg/dL (0.55-1.3)
[2024-04-07] MEDS ORDERED: amLODIPine BESYLATE 5 MG TABLET (FP) PO SCH (09:49)
[2024-04-07 15:51] VITALS: BP 132/73; PULSE 65; RESP 18; TEMP 98.4
== END 2024-04-07 17:34 | DRG 425 ==
LOC: JER 02:52 → JERBED 05:45 → J4W 15:36
PROVIDERS: ADMIT Internal Medicine; ATTEND Internal Medicine
DX: E87.5 Hyperkalemia (principal); J44.9 Chronic obstructive pulmonary disease, unspecified; E78.5 Hyperlipidemia, unspecified; I12.9 Hypertensive chronic kidney disease with stage 1 through stage 4 chronic kidney disease, or unspecified chronic kidney disease; N18.9 Chronic kidney disease, unspecified; E11.22 Type 2 diabetes mellitus with diabetic chronic kidney disease; D75.838 Other thrombocytosis; F32.9 Major depressive disorder, single episode, unspecified; Z86.718 Personal history of other venous thrombosis and embolism
CPT/HCPCS: 36415; 80048; 80053; 82962; 83036; 83735; 84100; 85025; 85027; 93005; 93010; 97116-GP; 97162-GP; 99285-25; J1644